=== PATIENT | male | born 1955 | race Caucasian/White ===

== ENCOUNTER 2019-06-16 17:04 | Emergency (ER) | payer MEDICARE, BC ==
[2019-06-16] MEDS ORDERED: Aspirin 81 MG Tab.Chew PO ONE (17:20)
--- NOTE | 2019-06-16 17:51 | EDM.PDOC ---
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 pt denies any Hx of known CAD or smoking or any other medical concerns today. L anterior chest radiating into upper arm Pain Score (Numeric/FACES): 3 - Related Data Allergies Allergy/AdvReac Type Severity Reaction Status Date / Time No Known Allergies Allergy Verified 06/16/19 17:24 Home Meds: Home Meds Aspirin [Marleny Chewable] 81 mg PO DAILY 06/16/19 [History] Azelastine [Astelin Nasal Soln] 1 inhalation AUBREY BID 06/16/19 [History] Finasteride [Proscar] 5 mg PO DAILY 06/16/19 [History] Loratadine [Claritin] 10 mg PO DAILY 06/16/19 [History] Rutin/Hesp/Bioflav/C/Herb#196 [Bioflex] 1 tab DAILY 06/16/19 [History] Simvastatin 5 mg PO BEDTIME 06/16/19 [History] Vit A/Vit C/Vit E/Zinc/Copper [Preservision] 1 each PO DAILY 06/16/19 [History] ED ROS GENERAL - Review of Systems Review Of Systems: See Below Constitutional: Reports: No Symptoms HEENT: Reports: No Symptoms Respiratory: Reports: No Symptoms Cardiovascular: Reports: Chest Pain. Denies: Dyspnea on Exertion, Palpitations GI/Abdominal: Reports: No Symptoms Musculoskeletal: Reports: No Symptoms Skin: Reports: No Symptoms ED EXAM, GENERAL - Physical Exam Exam: See Below Exam Limited By: No Limitations General Appearance: Alert, No Apparent Distress Nose: Normal Inspection Throat/Mouth: Normal Inspection, Normal Oropharynx Head: Atraumatic, Normocephalic Neck: Normal Inspection, Supple Respiratory/Chest: No Respiratory Distress, Lungs Clear, Other (tender over left upper ribs anterior side. ) Cardiovascular: Normal Peripheral Pulses, Regular Rate, Rhythm GI/Abdominal: Normal Bowel Sounds, Soft, Non-Tender Back Exam: Normal Inspection, Full Range of Motion Extremities: Normal Inspection, Normal Range of Motion, No Pedal Edema Course - Vital Signs Text/Narrative:: labs / CXR results were explained to pt, EKG shows no acute changes. trop is neg. pt chest pain is reproducible and seems MS. supportive mng and over the counter analgesics were recommended. pt to slow down on strenuous activities and follow with PCP in 1 week for re- check. Last Recorded V/S: Last Vital Signs Temp 36.6 C 06/16/19 17:04 Pulse 61 06/16/19 17:04 Resp 18 06/16/19 17:04 BP 165/96 H 06/16/19 17:04 Pulse Ox 100 06/16/19 17:04 - Orders/Labs/Meds Orders: Active Orders 24 hr Category Date Time Status CXR [Chest 1V Frontal] [CR] Stat Exams 06/16/19 17:51 Taken Labs: Laboratory Tests 06/16/19 06/16/19 06/16/19 Range/Units 17:20 17:20 17:20 WBC 5.1 (4.5-12.0) X10-3/uL RBC 5.26 (4.30-5.75) x10(6)uL Hgb 16.0 (13.5-17.8) g/dL Hct 47.6 (30.0-51.3) % MCV 90.5 (80-96) fL MCH 30.5 (27.7-33.6) pg MCHC 33.7 (32.2-35.4) g/dL RDW 12.6 (11.5-15.5) % Plt Count 173 (125-369) X10(3)uL MPV 8.3 (7.4-10.4) fL Neut % (Auto) 65.7 (46-82) % Lymph % (Auto) 21.7 (13-37) % [place] % (Auto) 8.3 (4-12) % Eos % (Auto) 4 (1.0-5.0) % Baso % (Auto) 1 (0-2) % Neut # (Auto) 3.4 (1.6-8.3) # Lymph # (Auto) 1.1 (0.6-5.0) # [place] # (Auto) 0.4 (0.0-1.3) # Eos # (Auto) 0.2 (0.0-0.8) # Baso # (Auto) 0.0 (0.0-0.2) # Sodium 141 (135-145) mmol/L Potassium 3.8 (3.5-5.3) mmol/L Chloride 107 (100-110) mmol/L Carbon Dioxide 26 (21-32) mmol/L BUN 26 H (7-18) mg/dL Creatinine 0.8 (0.70-1.30) mg/dL Est Cr Clr Drug Dosing 110.03 mL/min Estimated GFR (MDRD) > 60 (>60) BUN/Creatinine Ratio 32.5 H (9-20) Glucose 97 (80-116) mg/dL Calcium 8.9 (8.6-10.2) mg/dL Total Bilirubin 0.5 (0.1-1.3) mg/dL AST 21 (5-25) IU/L ALT 33 (12-36) U/L Alkaline Phosphatase 67 (56-112) IU/L Troponin I < 0.017 L (<0.017-0.056) ng/mL Total Protein 7.0 (6.0-8.0) g/dL Albumin 3.6 (3.2-4.6) g/dL Globulin 3.4 g/dL Albumin/Globulin Ratio 1.1 Departure - Departure Time of Disposition: 18:58 Disposition: Home, Self-Care 01 Clinical Impression: Chest wall pain - Discharge Information Forms: ED Department Discharge - My Orders Last 24 Hours: My Active Orders 06/16/19 17:51 CXR [Chest 1V Frontal] [CR] Stat - Assessment/Plan Last 24 Hours: My Active Orders 06/16/19 17:51 CXR [Chest 1V Frontal] [CR] Stat
--- NOTE | 2019-06-18 10:29 | CR ---
INDICATION: Chest pain. CHEST: Portable AP upright view of the chest was obtained 06/15/19 - no comparisons. The heart is normal in size. The aorta is slightly tortuous with minimal calcification in the arch. Overlying EKG leads are noted. A definite active infiltrate or effusion was not identified. IMPRESSION: No acute process. MTDD
== END 2019-06-16 19:20 | disposition home or self-care (01) ==
LOC: FB.ED 17:04
DX: R07.89 Other chest pain (principal); Z79.82 Long term (current) use of aspirin; Z79.899 Other long term (current) drug therapy
CPT/HCPCS: 36415; 71045; 80053; 84484; 85025; 93005; 93010; 99283; 99285-25; A9270-GY

== ENCOUNTER 2023-08-01 14:00 | Emergency (ER) | payer BC, MEDICARE ==
[2023-08-01] MEDS ORDERED: Aspirin 81 MG Tab.Chew PO ONE (14:05)
[2023-08-01] MEDS ORDERED: Nitroglycerin 0.4 MG Tab.SL SL ONE (14:05)
[2023-08-01 14:20] LABS: BASOPHILS ABSOLUTE AUTO 0.1 x10-3/uL (0.0-0.3); BASOPHILS PERCENT AUTO 0.8 % (0.3-3.8); EOSINOPHILS ABSOLUTE AUTO 0.2 x10-3/uL (0.0-0.6); EOSINOPHILS PERCENT AUTO 3.1 % (0.1-6.8); HEMATOCRIT 46.3 % (38.3-50.1); HEMOGLOBIN 15.8 g/dL (12.9-17.7); LYMPHOCYTES ABSOLUTE AUTO 1.3 x10-3/uL (0.5-4.5); LYMPHOCYTES PERCENT AUTO 20.8 % (15.8-45.3); MEAN CORPUSCULAR HEMOGLOBIN 30.9 pg (27.0-33.3); MEAN CORPUSCULAR HGB CONC 34.2 g/dL (28.7-35.3); MEAN CORPUSCULAR VOLUME 90.3 fL (80.8-98.7); MEAN PLATELET VOLUME 7.4 fL (6.7-11.0); MONOCYTES ABSOLUTE AUTO 0.5 x10-3/uL (0.0-1.2); MONOCYTES PERCENT AUTO 7.9 % (5.5-15.2); NEUTROPHILS ABSOLUTE AUTO 4.1 x10-3/uL (1.7-6.9); NEUTROPHILS PERCENT AUTO 67.4 % (40.3-71.8); PLATELET COUNT,PLT 199 x10(3)uL (117-477); RED BLOOD CELL COUNT 5.12 x10(6)uL (3.90-5.90); RED CELL DISTRIBUTION WIDTH 13.2 % (12.4-15.0)
[2023-08-01 14:21] LABS: BLOOD UREA NITROGEN,BUN 26 mg/dL (7-18); BUN/CREATININE RATIO 28.9 (9-20); CALCIUM 9.3 mg/dL (8.6-10.2); CARBON DIOXIDE,CO2 28 mmol/L (21-32); CHLORIDE,CL 105 mmol/L (100-110); CREATININE 0.9 mg/dL (0.70-1.30); ESTIMATED GFR 92 mL/min (>60); GLUCOSE RANDOM 91 mg/dL (80-116); POTASSIUM,K 4.2 mmol/L (3.5-5.3); SODIUM,NA 138 mmol/L (135-145)
[2023-08-01 14:26] LABS: ALANINE AMINOTRANSFERASE,ALT 33 U/L (12-36); ALBUMIN 3.7 g/dL (3.2-4.6); ALKALINE PHOSPHATASE 72 IU/L (56-112); ASPARTATE AMNIOTRANSFERASE,AST 22 IU/L (5-25); BILIRUBIN TOTAL 0.6 mg/dL (0.1-1.3); PROTEIN TOTAL,TP 7.3 g/dL (6.0-8.0)
[2023-08-01 14:29] LABS: INR 1.04 (1.00-1.24); PROTHROMBIN TIME 10.7 sec (9.0-11.1)
[2023-08-01 14:34] LABS: TROPONIN I 7.7 pg/mL (4.0-60.3)
== END 2023-08-01 15:21 | disposition home or self-care (01) ==
LOC: FB.ED 14:00
DX: R07.9 Chest pain, unspecified (principal); I10 Essential (primary) hypertension; M19.90 Unspecified osteoarthritis, unspecified site; Z79.82 Long term (current) use of aspirin; Z79.899 Other long term (current) drug therapy; Z90.49 Acquired absence of other specified parts of digestive tract
CPT/HCPCS: 71045; 80053; 83880; 84484; 85025; 85610; 85730; 93005; 99285; A9270-GY